=== PATIENT | male | born 1975 | race Caucasian/White ===

== ENCOUNTER 2022-10-18 08:56 | Outpatient (CLI) | payer OTHER, SELFPAY ==
[2022-10-18 10:15] LABS: Basophils Percent Auto 0.3 % (0.2-1.2); Eosinophils Absolute Auto 0.2 K/mm3 (0-0.3); Eosinophils Percent Auto 2.1 % (0-4.4); Hematocrit 44.1 % (42.0-52.0); Hemoglobin 14.8 g/dL (14.0-18.0); Immature Granulocyte Absolute 0.03 K/mm3 (0.00-0.031); Immature Granulocyte Percent A 0.4 % (0-0.5); Immature Platelet Fraction Pct 8.2 % (0.9-11.2); Lymphocytes Absolute Auto 0.92 K/mm3 (0.9-3.2); Lymphocytes Percent Auto 12.3 % (18.3-44.2); Mean Corpuscular HGB Conc 33.6 g/dl (32-36); Mean Corpuscular Hemoglobin 31.2 pg (26-34); Monocytes Absolute Auto 0.6 K/mm3 (0.1-0.6); Monocytes Percent Auto 7.8 % (2.6-8.5); Neutrophils Absolute Auto 5.8 K/mm3 (1.3-6.7); Neutrophils Percent Auto 77.1 % (45.5-73.1); Platelet Count Result 92 k/mm3 (150-375); Red Blood Count 4.74 M/mm3 (4.6-6.20); Red Cell Distribution Width 14.2 % (11.5-14.5); White Blood Count 7.5 K/mm3 (4.5-10.0)
[2022-10-18 10:35] LABS: Alanine Aminotransferase 57 U/L (6-50); Albumin Level 4.1 g/dL (3.5-5.1); Alkaline Phosphatase 92 U/L (38-126); Anion Gap 4 mmol/L (8-16); Aspartate Amino Transferase 67 U/L (17-59); Bilirubin,Total 1.3 mg/dL (0.2-1.3); Blood Urea Nitrogen 9 mg/dL (9-20); Calcium 8.7 mg/dL (8.4-10.2); Carbon Dioxide 30 mmol/L (22-30); Chloride 100 mmol/L (98-107); Cholesterol 188 mg/dL (0-200); Estimated Glomerular Filt Rate > 60; Glucose 88 mg/dL (65-110); HDL Direct 69 mg/dL; Potassium 3.5 mmol/L (3.4-5.0); Sodium 134 mmol/L (137-145); Triglycerides 75 mg/dL (<150)
[2022-10-18 10:46] LABS: LDL Cholesterol Direct 91 mg/dL
[2022-10-18 10:58] LABS: Vitamin D 25 Hydroxy 25.6 ng/mL
[2022-10-18 11:05] LABS: Thyroid Stimulating Hormone 0.648 uIU/mL (0.465-4.680)
[2022-10-18 11:21] LABS: HIV 1/2 Ab P24 Ag Result Negative (Negative)
[2022-10-18 11:30] LABS: Hepatitis C Virus Antibody Negative (Negative)
== END 2022-10-18 08:57 | disposition home or self-care (01) ==
LOC: ANHLAB 08:58
PROVIDERS: PCP Family Medicine
DX: Z79.899 Other long term (current) drug therapy (principal)
CPT/HCPCS: 36415; 80053; 80061; 82306; 84443; 85025; 85055; 86695; 86696; 86703; 86803; G0432

== ENCOUNTER 2024-01-11 15:23 | Emergency (ER) | payer OTHER, SELFPAY ==
--- NOTE | 2024-01-11 15:45 | PC.NURSE ---
pt refusing to cooperate with RN on his arrival. pt cursing at staff. spoke to the pt, he stated I came here to see my doctor pt educated that this hospital does not have any psychiatrists. pt then asked to leave with EMS and go to facility where his doctors were at. pt informed that EMS could not take him as they are unable to transport from one hospital to another facility. pt at this time wanted belongings, and ambulated to exit. pt at no time made any reference to suicidal ideation when speaking with staff. providers noticed that pt did leave call to Mandy ZELAYA to do wellcheck on pt. informed them that pt was walking towards [place]
== END 2024-01-11 15:34 | disposition left against medical advice (07) ==
PROVIDERS: PCP Family Medicine
DX: Z76.0 Encounter for issue of repeat prescription (principal)
CPT/HCPCS: 99199